=== PATIENT | female | born 1970 | race Hispanic/Latino ===

== ENCOUNTER 2024-06-25 11:38 | Emergency (ER) | payer OTHER ==
[~2024-06-25] VITALS: Ht 154.9 cm; Wt 68.0 kg
[2024-06-25 11:45] VITALS: TEMP 98.2
[2024-06-25 12:05] LABS: BASOPHILS % 0.5 % (0.0-1.0); EOSINOPHILS # (AUTO) 0.1 (0.0-0.4); EOSINOPHILS % 1.3 % (0.0-6.0); HEMATOCRIT 39.1 % (34.2-44.1); HEMOGLOBIN 13.3 g/dL (12.0-16.0); LYMPHOCYTES # (AUTO) 2.8 (1.0-3.2); LYMPHOCYTES % 38.3 % (18.0-39.1); MEAN CORPUSCULAR HEMOGLOBIN 28.7 pg (28-32); MEAN CORPUSCULAR VOLUME 84.3 fL (81-99); MONOCYTES # (AUTO) 0.7 (0.2-0.8); MONOCYTES % 8.8 % (4.4-11.3); NEUTROPHILS # (AUTO) 3.8 (2.1-6.9); NEUTROPHILS % 50.8 % (38.7-80.0); PLATELET COUNT 393 x10e3/uL (140-360); RED BLOOD COUNT 4.64 x10e6/uL (3.6-5.1); WHITE BLOOD COUNT 7.41 x10e3/uL (4.8-10.8)
[2024-06-25] MEDS: SODIUM CHLORIDE 0.9% 1000ML 1,000 ML IV STA (12:11)
[2024-06-25 12:23] LABS: ALANINE AMINOTRANSFERASE 55 IU/L (0-55); ALBUMIN 3.7 g/dL (3.5-5.0); ALBUMIN/GLOBULIN RATIO 1.1 (0.8-2.0); ALKALINE PHOSPHATASE 103 IU/L (40-150); ANION GAP 13.7 mmol/L (8-16); BILIRUBIN,TOTAL 0.3 mg/dL (0.2-1.2); BLOOD UREA NITROGEN 11 mg/dL (7-26); BUN/CREATININE RATIO 16 (6-25); CALCIUM 9.4 mg/dL (8.4-10.2); CARBON DIOXIDE 24 mmol/L (22-29); CHLORIDE 106 mmol/L (98-107); CREATINE KINASE 80 IU/L (29-168); EST GLOMERULAR FILTRATION RATE 103 ML/MIN (>=60); GLUCOSE 96 mg/dL (74-118); POTASSIUM 3.7 mmol/L (3.5-5.1); SODIUM 140 mmol/L (136-145); TOTAL PROTEIN 7.2 g/dL (6.5-8.1)
[2024-06-25 12:29] VITALS: PULSE 85; RESP 16
[2024-06-25 12:32] LABS: TROPONIN I < 0.001 ng/mL (0-0.300)
[2024-06-25] MEDS: KETOROLAC TROMETHAMINE 60 MG/2 ML VIAL IM ONE (13:07)
[2024-06-25 14:14] VITALS: BP 122/78; PULSE 78; RESP 18; TEMP 98; O2SAT 98
== END 2024-06-25 14:10 | disposition home or self-care (01) ==
LOC: ER 11:44
DX: R00.2 Palpitations (principal); R51.9 Headache, unspecified; E78.5 Hyperlipidemia, unspecified
CPT/HCPCS: 36415; 70450; 71045; 80053; 82550; 83690; 83880; 84484; 85025; 93005; 99284; J1885; J7030